=== PATIENT | male | born 1965 | race Caucasian/White ===

== ENCOUNTER 2021-03-22 21:45 | Emergency (ER) | payer OTHER ==
[2021-03-22 21:53] VITALS: BP 126/69; PULSE 65; TEMP 97.6; BMI 22.6
[2021-03-22] MEDS ORDERED: KETOROLAC TROMETHAMINE 30 MG/1 ML VIAL IM ONE (23:18)
[2021-03-22] MEDS ORDERED: KETOROLAC TROMETHAMINE 30 MG/1 ML VIAL ONE (23:25)
== END 2021-03-22 23:40 | disposition home or self-care (01) ==
LOC: JER 21:45 → JERFT 21:45
PROC: 3E0233Z Introduction of Anti-inflammatory into Muscle, Percutaneous Approach (ICD-10-PCS; principal; 2021-03-22)
DX: M54.50 Low back pain, unspecified (principal); V87.7XXA Person injured in collision between other specified motor vehicles (traffic), initial encounter; Y92.9 Unspecified place or not applicable
CPT/HCPCS: 99283-25